=== PATIENT | male | born 1980 | race Asian ===

== ENCOUNTER 2018-01-26 12:52 | Emergency (ER) | payer OTHER ==
[~2018-01-26] VITALS: Ht 182.9 cm; Wt 90.7 kg
[~2018-01-26 12:52] MED LIST: ATIVAN1 M1 PO; ATIVAN1 MG PO; CEPHALEXIN500 M3 PO; FOLIC ACID1 M1 PO; INDOMETHACIN50 M1 PO; LORAZEPAM1 M1 PO; MAGNESIUM400 M1 PO; MILK THISTLE175 MG PO; MULTI-DAY VITA1 EACH PO; VITAMIN B COMP1 EACH PO; VITAMIN B-1100 MG PO; VITAMIN D-32000 UNI1 PO; ZINC50 M3 PO
--- NOTE | 2018-01-26 13:17 | ED PSYCHIATRIC COMPLAINT ---
History of Present Illness General Chief Complaint: General Adult Stated Complaint: ETOH DETOX Source: patient, old records Exam Limitations: no limitations Vital Signs & Intake/Output Vital Signs & Intake/Output Vital Signs Date Time Temp Pulse Resp B/P B/P Pulse O2 O2 Flow FiO2 Mean Ox Delivery Rate 01/26 1337 96.8 98 18 148/90 01/26 1337 96.8 98 18 148/90 97 Room Air Room Air 01/26 1258 96.8 100 18 96 Room Air Allergies Coded Allergies: Penicillins (HIVES 05/14/16) Reconcile Medications Cholecalciferol (Vitamin D3) (Vitamin D-3) (Unknown Strength) CAPSULE 1,000 MG PO DAILY SUPPLEMENT (Reported) Clonidine HCl 0.1 MG TABLET 1 TAB PO BID WITHDRAWAL Folic Acid 1 MG TABLET 1 MG PO DAILY SUPPLEMENT LORazepam (Ativan) 1 MG TAB 1 TAB PO TID PRN ALCOHOL WITHDRAWAL SYMPTOMS TEN...[id number] LORazepam (Ativan) 1 MG TAB 1 TAB PO BID PRN WITHDRAWAL Lorazepam 1 MG TABLET 1 MG PO DAILY ALCOHOL WITHDRAWAL Multivitamin (Multi-Day Vitamins) 1 EACH TABLET 1 TAB PO DAILY SUPPLEMENT ( Reported) Ondansetron (Zofran Odt) 4 MG TAB.RAPDIS 1 TAB SL TID PRN NAUSEA Thiamine HCl (Vitamin B-1) 100 MG TABLET 100 MG PO DAILY SUPPLEMENT Vitamin B Complex 1 EACH CAPSULE 1 CAP PO DAILY SUPPLEMENT (Reported) Triage Note: 37 Y/O MALE REQUESTING HELP WITH DETOX FROM ALCOHOL. STATES HIS LAST DRINK WAS LAST EVENING; STATES HE HAS BEEN DRINKING "QUITE A BIT DAILY". PT STATES HE WAS RECENTLY PRESCRIBED MEDS TO ASSIST WITH DETOX HOWEVER STATES HE STARTED DRINKING AFTER TAKING ONLY ONE DOSE. PT STATES HE HAS HAD A CHANGE OF HEART AND WOULD LIKE PRESCRIPTIONS FOR MEDS TO DETOX AT HOME. STATES HE HAS BEEN INPATIENT BEFORE AND FEELS HE CAN DO IT AT HOME THIS TIME, "I NEED TO BE IN A RELAXED ENVIRONMENT. I ALREADY REMOVED THE ALCOHOL FROM MY HOUSE AND MY WILL BE THERE". C/O TREMORS AND FEELING ANXIOUS AT THIS TIME. DENIES SI/HI Triage Nurses Notes Reviewed? yes Onset: Abrupt Duration: day(s): (1), constant Timing: recent history Severity: moderate Severity Numbers: 5 Associated Symptoms: denies HPI: 37-year-old male history of past alcohol abuse presents to ER requesting help going through detox. The patient was seen here 8 days ago for the same he states that because of withdrawal symptoms he started drinking again, his last drink was 2 days ago. He states he normally drinks 3 or 4 40 ounce beers daily. He denies any other drug use no SI. He denies any nausea or abdominal pain at this time he reports that his body however feels itchy" he denies chest pain shortness of breath. The patient states that he wants to attempt going through detox at home he does not want to be in the emergency room or in an inpatient setting. Old records state that the patient has a history of withdrawal seizures however he denies. He denies any other complaints at this time. (Antony Chirinos) Past History Travel History Traveled to [place] past 21 day No Medical History Any Pertinent Medical History? 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 No (Antony Chirinos) Review of Systems Review of Systems Constitutional: Reports: see HPI. Comments Review of systems: See HPI, All other systems negative. Constitutional, no chills no fever, HEENT: no sore throat no congestion Cardiovascular: No chest pain Skin: no rashes, no change in skin Respiratory: No dyspnea no cough GI: No nausea no vomiting : No dysuria Muscle skeletal: No joint pain, no back pain, no neck pain, Neurologic: , no headache Heme/endocrine: No bruising Immunology: No lymphadenopathy (Antony Chirinos) Physical Exam Physical Exam General Appearance: well developed/nourished, no apparent distress, alert, awake , comfortable Neurological/Psychiatric: no motor/sensory deficits, awake, alert Comments: Well-developed well-nourished patient in no apparent distress. HEENT: Atraumatic, extraocular motion intact Neck: Supple, FROM Back: FROM Cardiovascular: Regular rate and rhythms no murmur Respiratory: No respiratory distress. Patient speaking in full complete sentences. Breath sounds clear to auscultation bilaterally: NO W/R/R Extremities: full range of motion Neuro: awake, alert, and oriented to person, place and time. There were no obvious focal neurologic abnormalities. Skin: Warm & dry;No appreciable rash on exposed skin Psych: Mood affect normal, normal memory normal judgment. SAD PERSONS Done? patient not suicidal (Antony Chirinos) Progress Differential Diagnosis: drug intoxication, electrolyte abnormality Plan of Care: Patient denies SI or HI he was seen here 8 days ago for the same medically cleared after close observation with Ativan taper. He states that his is going to help him withdrawal at home he does not wish to be evaluated with blood work here in the ER he denies any other drug use. I discussed with him all his return precautions they feel comfortable with plan (Antony Chirinos) Departure Departure Time of Disposition: 1321 Disposition: HOME OR SELF CARE Condition: Stable Clinical Impression Primary Impression: Alcohol abuse Referrals: Patient Has No Primary Care Dr (PCP/Family) Additional Instructions: FOLLOW UP WITH DETOX FACILITIES LISTED. ATIVAN TAPER DIRECTED. DO NOT DRINK ALCOHOL AND TAKE THIS MEDICATION. CLONIDINE DIRECTED, ZOFRAN FOR NAUSEA. RETURN AT ANYTIME SOONER IF YOUR SYMPTOMS WORSEN DESPITE MEDICATION OR ANY OTHER CONCERNS Departure Forms: Customer Survey General Discharge Information Prescriptions: Current Visit Scripts Ondansetron (Zofran Odt) 1 TAB SL TID PRN NAUSEA #10 TAB LORazepam (Ativan) 1 TAB PO BID PRN WITHDRAWAL #10 TAB Clonidine HCl 1 TAB PO BID #9 TAB (Antony Chirinos) PA/CLIN NURSE SPEC Co-Sign Statement Statement: ED Attending supervision documentation- I saw and evaluated the patient. I have also reviewed all the pertinent lab results and diagnostic results. I agree with the findings and the plan of care as documented in the PA's/CLIN NURSE SPEC's documentation. x I have reviewed the ED Record and agree with the PA's/CLIN NURSE SPEC's documentation. [] Additions or exceptions (if any) to the PAs/CLIN NURSE SPEC's note and plan are summarized below: [] (Frank ELLINGTON,Jean-Claude)
[2018-01-26] MEDS ORDERED: CLONIDINE HCL0.1 MG PO (13:23)
[2018-01-26] MEDS ORDERED: ATIVAN1 M1 PO (13:23)
[2018-01-26] MEDS ORDERED: ZOFRAN ODT4 M1 SL (13:23)
[2018-01-26 13:37] VITALS: BP 148/90
== END 2018-01-26 13:39 ==
LOC: ERH 12:52
DX: F10.10 Alcohol abuse, uncomplicated (principal)
CPT/HCPCS: J3101

== ENCOUNTER 2018-02-11 18:41 | Emergency (ER) | payer OTHER ==
[~2018-02-11] VITALS: Ht 182.9 cm; Wt 95.3 kg
[~2018-02-11 18:41] MED LIST changes: +CLONIDINE HCL0.1 MG PO; +ZOFRAN ODT4 M1 SL
--- NOTE | 2018-02-11 19:30 | ED PSYCHIATRIC COMPLAINT ---
History of Present Illness General Chief Complaint: ETOH/Drug Related Complaint Stated Complaint: REQUESTING ETOH DETOX Source: patient, old records Exam Limitations: intoxication Vital Signs & Intake/Output Vital Signs & Intake/Output Vital Signs Date Time Temp Pulse Resp B/P B/P Pulse O2 O2 Flow FiO2 Mean Ox Delivery Rate 02/12 0511 98.4 73 18 119/73 02/12 0453 98.9 80 18 125/75 98 02/12 0128 97.4 78 18 109/60 02/12 0119 97.4 78 18 109/60 96 02/11 2150 97.6 101 16 137/66 95 Room Air 02/11 2149 97.6 101 16 137/66 02/11 1847 98.6 112 18 144/100 95 Room Air ED Intake and Output 02/12 0000 02/11 1200 Intake Total 200 Output Total Balance 200 Intake, Oral 200 Patient 210 lb Weight Weight Reported by Patient Measurement Method Allergies Coded Allergies: Penicillins (HIVES 05/14/16) amoxicillin (PROPHYLACTIC SHOCK PER PT 02/11/18) Reconcile Medications Chlordiazepoxide HCl 25 MG CAPSULE 0 PO SEE ADMIN CRITERIA PRN alcohol withdrawal 1-2 cap QID x 2D, 1-2 cap TID x 2D, 1-2 cap BID x 2D, 1-2 cap QD x2D Cholecalciferol (Vitamin D3) (Vitamin D-3) (Unknown Strength) CAPSULE 1,000 MG PO DAILY SUPPLEMENT (Reported) Clonidine HCl 0.1 MG TABLET 1 TAB PO BID WITHDRAWAL Clonidine HCl (Catapres) 0.1 MG TABLET 1 TAB PO DAILY htn Folic Acid 1 MG TABLET 1 MG PO DAILY SUPPLEMENT LORazepam (Ativan) 1 MG TAB 1 TAB PO TID PRN ALCOHOL WITHDRAWAL SYMPTOMS TEN...[id number] LORazepam (Ativan) 1 MG TAB 1 TAB PO BID PRN WITHDRAWAL Lorazepam 1 MG TABLET 1 MG PO DAILY ALCOHOL WITHDRAWAL Multivitamin (Multi-Day Vitamins) 1 EACH TABLET 1 TAB PO DAILY SUPPLEMENT ( Reported) Ondansetron (Zofran Odt) 4 MG TAB.RAPDIS 1 TAB SL TID PRN NAUSEA Thiamine HCl (Vitamin B-1) 100 MG TABLET 100 MG PO DAILY SUPPLEMENT Vitamin B Complex 1 EACH CAPSULE 1 CAP PO DAILY SUPPLEMENT (Reported) Triage Note: PT FROM HOME C/O ETOH DETOX. PT IS HIGHLY INTOXICATED IN TRIAGE, HICCUPING AND SLURRED SPEECH. PTS IN TRIAGE WITH DAUGHTER WHO IS AN . PT WAS RELEASED FROM [facility] TODAY TO F/U WITH DETOX TOMORROW. PT HAS DRANK ALL DAY TODAY LAST DRINK WAS 5 MINS PRIOR TO ARRIVAL PT STATES "JUST 5-6 BEERS" PTS STATES PT ALSO DRINKS TEQUILA, SMOKES CIGS, MARIJUANA. PTS STATES PT NEEDS HELP THIS HAS HAPPENED MULTIPLE TIMES BEFORE. PT IN TRIAGE DENIES -HI/-SI, BUT STATES PT STATES SOMETIMES WHEN HE DRINKS "IM GOING TO GO KILL A BUNCH OF PEOPLE THEN MYSELF". PTS IS [place] . PTS BP ELEVATED 144/100, HR 112. Triage Nurses Notes Reviewed? yes Onset: Just prior to arrival Duration: hour(s):, constant, continues in ED Timing: recent history Severity: moderate Associated Symptoms: anxiety, impaired concentration HPI: Patient presents requesting medications for alcohol detox. He reports shaking with alcohol abstinence and confusion. He denies fever chills nausea vomiting diarrhea abdominal pain chest pain shortness breath headache dysuria rash bleeding suicidal ideation homicidal ideation hallucination. Past History Travel History Traveled to [place] past 21 day No Medical History Any Pertinent Medical History? 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 No Review of Systems Review of Systems Constitutional: Reports: no symptoms. EENTM: Reports: no symptoms. Respiratory: Reports: no symptoms. Cardiovascular: Reports: no symptoms. GI: Reports: no symptoms. Genitourinary: Reports: no symptoms. Musculoskeletal: Reports: no symptoms. Skin: Reports: no symptoms. Neurological/Psychological: Reports: see HPI, anxiety, cognitive dysfunction, confusion. Hematologic/Endocrine: Reports: no symptoms. Immunologic/Allergic: Reports: no symptoms. All Other Systems: Reviewed and Negative Physical Exam Physical Exam General Appearance: well developed/nourished, alert, awake, anxious, comfortable Head: atraumatic, normal appearance Eyes: Bilateral: normal appearance, PERRL, EOMI. 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 patient not suicidal CAGE (2/more=possible [place] CAGE (2/more=possible [place] Response Value Cut Down? yes 1 Annoyed? yes 1 Guilty? 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 1 Total 4 Progress Differential Diagnosis: drug intoxication, drug overdose, drug withdrawal, electrolyte abnormality, hypoglycemia Plan of Care: Current Medications Sig/Angie Start time Last Medication Dose Stop Time Status Admin Clonidine 0.1 MG Q8 02/11 1930 UNVr 02/11 (Catapres) 1940 Gabapentin 300 MG Q8 02/11 1930 UNVr 02/11 (Neurontin) 1940 Folic Acid 1 MG DAILY 02/11 1925 UNVr 02/11 (Folic Acid) 1940 Multivitamins 1 TAB DAILY 02/11 1925 UNVr 02/11 (Theragran Vitamins) 1940 Thiamine HCl 100 MG DAILY 02/11 1925 UNVr 02/11 (Vitamin B1) 1940 Departure Departure Time of Disposition: 621 Disposition: HOME OR SELF CARE Condition: Stable Clinical Impression Primary Impression: Alcohol dependence with intoxication Secondary Impressions: Hypertension Referrals: Patient Has No Primary Care Dr (PCP/Family) Departure Forms: General Discharge Information Prescriptions: Current Visit Scripts Chlordiazepoxide HCl 0 PO SEE ADMIN CRITERIA PRN alcohol withdrawal #40 CAP 1-2 cap QID x 2D, 1-2 cap TID x 2D, 1-2 cap BID x 2D, 1-2 cap QD x2D Clonidine HCl (Catapres) 1 TAB PO DAILY #30 TAB Critical Care Note Critical Care Note Critical Care Time: 30-74 min (40)
[2018-02-12] MEDS ORDERED: CHLORDIAZEPOXID25 M3 PO (03:49)
[2018-02-12] MEDS ORDERED: CATAPRES0.1 M1 PO (03:51)
[2018-02-12 06:30] VITALS: BP 122/70
== END 2018-02-12 06:30 ==
LOC: ERH 18:41
DX: F10.229 Alcohol dependence with intoxication, unspecified (principal); I10 Essential (primary) hypertension; F17.210 Nicotine dependence, cigarettes, uncomplicated
CPT/HCPCS: J3490

== ENCOUNTER 2018-02-16 14:19 | Inpatient (IN) | payer OTHER ==
[~2018-02-16] VITALS: Ht 182.9 cm; Wt 95.3 kg
[~2018-02-16 14:19] MED LIST changes: +CATAPRES0.1 M1 PO; +CHLORDIAZEPOXID25 M3 PO
--- NOTE | 2018-02-16 14:41 | ED GENERAL ADULT ---
History of Present Illness General Chief Complaint: ETOH/Drug Related Complaint Stated Complaint: ETOH Source: patient, old records Exam Limitations: intoxication Vital Signs & Intake/Output Vital Signs & Intake/Output Vital Signs Date Time Temp Pulse Resp B/P B/P Pulse O2 O2 Flow FiO2 Mean Ox Delivery Rate 02/17 1734 98.1 78 18 179/80 02/17 1730 98.1 78 18 179/70 98 Room Air 02/17 1404 98.7 77 14 139/80 02/17 1404 98.7 77 14 139/60 99 Room Air 02/17 1222 99.2 96 21 146/76 02/17 1222 99.2 96 21 146/76 96 Room Air 02/17 0930 99.0 90 20 142/77 02/17 0930 99.0 90 20 142/77 97 Room Air 02/17 0737 99.2 95 20 154/80 02/17 0736 99.2 95 20 154/80 97 Room Air 02/17 0558 98.3 99 18 147/63 02/17 0521 98.3 99 18 147/63 97 Room Air 02/17 0333 99.0 86 18 143/84 97 Room Air 02/17 0315 99.0 86 18 143/84 02/17 0040 98.4 87 16 141/60 02/17 0040 98.4 87 16 141/66 97 Room Air 02/16 2237 97.8 112 20 157/82 02/16 2232 97.8 112 20 157/82 95 Room Air 02/16 1927 97.3 97 18 134/92 02/16 1927 97.3 97 20 134/92 96 Room Air 02/16 1757 98.3 92 20 128/86 02/16 1757 98.3 92 20 138/86 96 Room Air ED Intake and Output 02/17 0000 02/16 1200 Intake Total Output Total Balance Patient 210 lb Weight Weight Emiliana Lift Measurement Method Allergies Coded Allergies: Penicillins (HIVES 05/14/16) amoxicillin (PROPHYLACTIC SHOCK PER PT 02/11/18) Triage Note: PT BROUGHT IN BY [employer] FOR ETOH INTOXICATION AND SI STATEMENTS. PT REQUESTING DETOX FROM ETOH. PT HAS HX OF WITHDRAWL SEIZURES. PT STOOD UP AND FACE PLANTED ONTO RUG.NO LOC. PT WAS NOT WORKING AT THE TIME OF INCIDENT JUST VISITING. PT IS DENYING SI/HI AT THIS TIME Triage Nurses Notes Reviewed? yes HPI: Porfirio presents intoxicated. He was drinking and then showed up at work. Patient then fell face first into the floor. Patient told coworkers that he was having suicidal ideations but the patient now adamantly denies it. Patient has no current complaints however he is intoxicated. (Samira ELLINGTON,Severo Landon) Reconcile Medications Cholecalciferol (Vitamin D3) (Vitamin D-3) (Unknown Strength) CAPSULE 1,000 MG PO DAILY SUPPLEMENT (Reported) Clonidine HCl 0.1 MG TABLET 1 TAB PO BID WITHDRAWAL Folic Acid 1 MG TABLET 1 MG PO DAILY SUPPLEMENT Ondansetron (Zofran Odt) 4 MG TAB.RAPDIS 1 TAB SL TID PRN NAUSEA Thiamine HCl (Vitamin B-1) 100 MG TABLET 100 MG PO DAILY SUPPLEMENT Vitamin B Complex 1 EACH CAPSULE 1 CAP PO DAILY SUPPLEMENT (Reported) (Rakel ELLINGTON,Alejo Domínguez) Past History Travel History Traveled to [place] past 21 day No Medical History Any Pertinent Medical History? 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 No (Severo Hogan MD) Review of Systems Review of Systems Constitutional: Reports: no symptoms. EENTM: Reports: no symptoms. Respiratory: Reports: no symptoms. Cardiovascular: Reports: no symptoms. GI: Reports: no symptoms. Musculoskeletal: Reports: no symptoms. Neurological/Psychological: Reports: no symptoms. Immunologic/Allergic: Reports: no symptoms. (Severo Hogan MD) Physical Exam Physical Exam General Appearance: well developed/nourished, alert, awake, intoxicated Head: ABRASION TO RIGHT SIDEOF FACE Eyes: Bilateral: PERRL, EOMI, other (SLUGGISH). Ears, Nose, Throat: normal pharynx, normal ENT inspection Neck: normal inspection, supple, full range of motion Respiratory: normal breath sounds, chest non-tender, no respiratory distress, lungs clear Cardiovascular: regular rate/rhythm, normal peripheral pulses Gastrointestinal: normal bowel sounds, soft, non-tender, no organomegaly Back: normal inspection, normal range of motion Extremities: normal inspection, normal capillary refill, normal range of motion, no edema Neurologic/Psych: no motor/sensory deficits, awake, alert Core Measures ACS in differential dx? No CVA/TIA Diagnosis: No Sepsis Present: No Sepsis Focused Exam Completed? No (Samira ELLINGTON,Severo Landon) Progress Differential Diagnoses I considered the following diagnoses in my evaluation of the patient: [Alcohol intoxication, electrolyte abnormality] Plan of Care: Orders Procedure Date/time Status Heart Healthy Diet 02/18 B Active CBC WITHOUT DIFFERENTIAL 02/18 171 Active BASIC ELECTROLYTES PLUS BUN&CR 02/18 1712 Active Regular Diet 02/17 D Complete Pathway - chart 02/17 1709 Active Pathway - chart 02/17 1707 Active House Staff 02/17 1707 Active Patient Data 02/17 1707 Active Code Status 02/17 1707 Active Patient Data 02/17 1705 Active Misc Message 02/17 1542 Active ED Holding Orders 02/17 1542 Active Admit to inpatient 02/17 1542 Active Vital Signs 02/17 1542 Active Code Status 02/17 1542 Complete CASE MANAGEMENT CONSULT 02/17 0112 Active Pathway - chart 02/17 0111 Active VTE Mechanical Prophylaxis 02/17 UNK Active Vital Signs 02/17 UNK Active Intake & Output 02/17 UNK Active CIWA 02/17 UNK Active Current Medications Sig/Angie Start time Last Medication Dose Stop Time Status Admin Lorazepam 1.5 MG Q12H 02/19 0600 UNVr (Ativan) 02/19 1801 Enoxaparin Sodium 40 MG DAILY 02/18 0900 UNVr (Lovenox) Lorazepam 1.5 MG Q6 02/18 0600 UNVr (Ativan) 02/18 1801 Lorazepam 2 MG Q6 02/17 1800 UNVr (Ativan) 02/18 0001 Acetaminophen 650 MG Q6P PRN 02/17 171 UNVr (Tylenol) Lorazepam 1 MG Q1P PRN 02/17 1715 UNVr (Ativan) Cyanocobalamin/ 1 BAG DAILY 02/17 1709 UNVr Thiamine/Pyridoxine 02/19 165 (Vitamin in I.V.) Dextrose/Water 1,000 ML (D5W 1000) Folic Acid 1 MG DAILY 02/17 170 UNVr (Folic Acid) 02/19 09 Multivitamins 1 TAB DAILY 02/17 170 UNVr (Theragran Vitamins) Thiamine HCl 100 MG DAILY 02/17 170 UNVr (Vitamin B1) 02/19 0901 Diphenhydramine HCl 50 MG Q4 PRN 02/17 0330 AC 02/17 (Benadryl) 0315 Lorazepam 2 MG Q2P PRN 02/17 0115 AC 02/17 (Ativan) 0742 Lorazepam 1 MG Q2P PRN 02/17 0115 AC 02/17 (Ativan) 0520 Ondansetron HCl 4 MG Q4P PRN 02/17 011 AC 02/17 (Zofran) 0118 Initial ED EKG: none Hand-Off Endorsed To: Alejo Sawyer DO Endorsed Time: 1899 Pending: other (SOBRIETY) (Samira ELLINGTON,Severo Landon) Comments: 02/17/2018 7:55:07 AM patient 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 The patient still wishes to have detox but is currently contacting his to discuss this possibility with her. Patient's speech is clear and his gait is stable. He denies SI or HI. Given this I do not feel he needs an emergent crisis consultation a longer period (Rakel ELLINGTON,Alejo Domínguez) Departure Departure Disposition: STILL A PATIENT Condition: Stable Clinical Impression Primary Impression: Alcohol abuse with intoxication Referrals: Patient Has No Primary Care Dr (PCP/Family) Departure Forms: Customer Survey General Discharge Information (Samira ELLINGTON,Severo Landon) Departure Comments 02/16/18 7 PM The patient was signed out to me by Dr. Hogan. He is here for alcohol intoxication with alcohol level of greater than 300. He also had a mechanical fall. CT scan of the head was negative. He is for reevaluation when sober. The patient was signed out to Dr. Sanchez 11 PM (Alejo Sawyer DO) Departure Comments pt to be signed out to dr. santos, 02/17/18, 7am. (Laura ELLINGTON,Jerome Arnold) Admission Note Spoke With: Bhavesh Espinoza MD Documentation of Exam: Documentation of any treatments & extenuating circumstances including Concerns Regarding Discharge (functional status, medication knowledge or non-compliance, living conditions, etc.) that warrant an admission rather than observation: Continued alcohol consumption places the patient at high risk of pancreatitis, pancreatic failure, liver failure and cirrhosis. In order to avoid this the patient will need to cease drinking alcohol. Patient's alcohol use places pt at high risk of seizures and delirium tremens during cessation. Patient will be at high risk of withdrawal seizures and delirium tremens (both of which can be fatal) for up to 5 days after stopping alcohol. pt will require IV Ativan to prevent these complications. pt is therefore a very poor candidate for outpatient treatment given the above concerns and treatment needs. Pt will require a multiple day hospitalization. (Rakel ELLINGTON,Alejo Domínguez) Critical Care Note Critical Care Note Critical Care Time: non-applicable (Samira ELLINGTON,Severo Landon)
[2018-02-16 14:58] VITALS: BP 127/86
[2018-02-16 15:03] LABS: ABSOLUTE BASOPHIL COUNT 0 /CUMM (0.0-0.2); ABSOLUTE EOSINOPHIL COUNT 0.1 /CUMM (0.0-0.7); ABSOLUTE GRANULOCYTE CT 10.7 /CUMM (1.4-6.5); ABSOLUTE LYMPH COUNT 2.2 /CUMM (1.2-3.4); ABSOLUTE MONOCYTE COUNT 0.4 /CUMM (0.10-0.60); BASOPHIL % 0.3 % (0.0-2.0); EOSINOPHIL % 0.7 % (0-5); GRANULOCYTE % 79.3 % (42.2-75.2); HEMATOCRIT 42.5 % (42-52); MEAN CORPUSCULAR HGB 31.4 PG (27.0-31.0); MEAN CORPUSCULAR HGB CONC 34.9 G/DL (33.0-37.0); MEAN PLATELET VOLUME 6.8 FL (7.4-10.4); PLATELET COUNT 262 /CUMM (130-400); RBC DISTRIBUTION WIDTH 13.8 % (11.5-14.5); RED BLOOD CELL CT 4.72 /CUMM (4.70-6.10); WHITE BLOOD CELL COUNT 13.5 /CUMM (4.8-10.8)
[2018-02-16 17:57] VITALS: BP 128/86
--- NOTE | 2018-02-16 18:50 | CT SCAN REPORT ---
EXAMINATION: CT HEAD WITHOUT CONTRAST CT CERVICAL SPINE WITHOUT CONTRAST CLINICAL INFORMATION: Head strike. EtOH. COMPARISON: None. TECHNIQUE: Imaging was performed from the skull base to vertex without intravenous administration of contrast. In addition, helical noncontrast CT imaging was acquired through the cervical spine and source images were reviewed along with axial reconstructions and sagittal and coronal MPRs. DLP: 1050.6 mGy-cm FINDINGS: HEAD: No intracranial mass, hemorrhage, or midline shift is visualized. The ventricles and sulci are age-appropriate. No extra-axial collections are identified. The paranasal sinuses and mastoid air cells are well aerated. CERVICAL SPINE: There is no evidence of acute cervical spine fracture. Vertebral bodies remain normal in height. Cervical vertebrae have normal alignment. There is multilevel degenerative spondylosis of the cervical spine with disc height narrowing and endplate spurs and facet joint arthrosis. There is disc height narrowing with prominent posterior spurs at C3-C4. Posterior spurs encroach into the neural foramina bilaterally, greater on the left than the right. There is mild disc height narrowing with anterior endplate spurs at C5-C6 through the upper thoracic spine. No pre- or paravertebral soft tissue abnormality is identified. Limited assessment of the lung apices is unremarkable. IMPRESSION: 1. No acute intracranial pathology. 2. No CT evidence of acute cervical spine fracture or traumatic subluxation
[2018-02-16 19:27] VITALS: BP 134/92
[2018-02-16 22:37] VITALS: BP 157/82
[2018-02-17] VITALS (9 sets, daily range): BP systolic 110–179; BP diastolic 60–84
--- NOTE | 2018-02-17 17:14 | History & Physical ---
Elva ELLINGTON,[facility] 02/17/18 1713: General Information and HPI MD Statement: I have seen and personally examined TINA JADE and documented this H&P. The patient is a 38 year old M who presented with a patient stated chief complaint of [Alcohol Detox]. Source of Information: patient Exam Limitations: no limitations History of Present Illness: Mr. Jade is 38 year-old gentleman with past medical history of alcohol abuse and alcohol withdrawal seizures was brought in by his coworker for alcohol detox. According to the patient, he has been drinking since the age of 14. He was last admitted to [facility] in 2016 for alcohol detox and has been sober since then. He started drinking again 2 weeks ago because of stress at home and has been binge drinking with at least 30 beers/hard liquor a day. Last drink was sometime around yesterday morning. He went to work after drinking, had a fall there and was brought in by his process for further evaluation. He denies losing consciousness or seizure-like activity. Also has a history of alcohol withdrawal seizures, last seizure episode was in 2015 and has had multiple episodes prior to that. He also reports ?? being admitted to the ICU for Ativan drip and being intubated in the past. Currently feels very shaky, nauseous and anxious. Denies any headaches, suicidal or homicidal ideations. Allergies/Medications Allergies: Coded Allergies: Penicillins (HIVES 05/14/16) amoxicillin (PROPHYLACTIC SHOCK PER PT 02/11/18) Home Med list Cholecalciferol (Vitamin D3) (Vitamin D-3) (Unknown Strength) CAPSULE 1,000 MG PO DAILY SUPPLEMENT (Reported) Clonidine HCl 0.1 MG TABLET 1 TAB PO BID WITHDRAWAL Folic Acid 1 MG TABLET 1 MG PO DAILY SUPPLEMENT Ondansetron (Zofran Odt) 4 MG TAB.RAPDIS 1 TAB SL TID PRN NAUSEA Thiamine HCl (Vitamin B-1) 100 MG TABLET 100 MG PO DAILY SUPPLEMENT Vitamin B Complex 1 EACH CAPSULE 1 CAP PO DAILY SUPPLEMENT (Reported) Past History Travel History Traveled to [place] past 21 day No Medical History Neurological: NONE EENT: NONE Cardiovascular: NONE Respiratory: NONE Gastrointestinal: NONE Hepatic: NONE Renal: NONE Musculoskeletal: NONE Psychiatric: ETOH WITHDRAWL SEIZURES Endocrine: NONE Blood Disorders: NONE Cancer(s): NONE STUDIO ASSOCIATE/Reproductive: NONE History of MRSA: No History of VRE: No History of CDIFF: No Surgical History Surgical History: non-contributory Past Family/Social History Family History Relations & Conditions if any Relation not specified for: FH: alcoholism Psychosocial History Who Do You Live With? spouse Services at Home: None Smoking Status: Never Smoked ETOH Use: alcoholic Illicit Drug Use: denies illicit drug use Functional Ability ADLs Independent: dressing, eating, toileting, bathing. Ambulation: independent IADLs Independent: shopping, housework, finances, food prep, telephone, transportation , medication admin. Review of Systems Review of Systems Constitutional: Reports: no symptoms. EENTM: Reports: no symptoms. Cardiovascular: Reports: no symptoms. Respiratory: Reports: no symptoms. GI: Reports: nausea. Genitourinary: Reports: no symptoms. Musculoskeletal: Reports: no symptoms. Skin: Reports: no symptoms. Neurological/Psychological: Reports: tremors. Hematologic/Endocrine: Reports: no symptoms. Immunologic/Allergic: Reports: no symptoms. All Other Systems: Reviewed and Negative Exam & Diagnostic Data Last 24 Hrs of Vital Signs/I&O Vital Signs Date Time Temp Pulse Resp B/P B/P Pulse O2 O2 Flow FiO2 Mean Ox Delivery Rate 02/17 1734 98.1 78 18 179/80 02/17 1730 98.1 78 18 179/70 98 Room Air 02/17 1404 98.7 77 14 139/80 02/17 1404 98.7 77 14 139/60 99 Room Air 02/17 1222 99.2 96 21 146/76 02/17 1222 99.2 96 21 146/76 96 Room Air 02/17 0930 99.0 90 20 142/77 02/17 0930 99.0 90 20 142/77 97 Room Air 02/17 0737 99.2 95 20 154/80 02/17 0736 99.2 95 20 154/80 97 Room Air 02/17 0558 98.3 99 18 147/63 02/17 0521 98.3 99 18 147/63 97 Room Air 02/17 0333 99.0 86 18 143/84 97 Room Air 02/17 0315 99.0 86 18 143/84 02/17 0040 98.4 87 16 141/60 02/17 0040 98.4 87 16 141/66 97 Room Air 02/16 2237 97.8 112 20 157/82 06/18 2232 97.8 112 20 157/82 95 Room Air 02/16 1927 97.3 97 18 134/92 02/16 1927 97.3 97 20 134/92 96 Room Air Physical Exam General Appearance Alert, Oriented X3, Cooperative, No Acute Distress Skin No Rashes, No Breakdown HEENT PERRLA, EOMI, Mucous Membr. moist/pink Cardiovascular Regular Rate, Normal S1, Normal S2, No Murmurs Lungs Clear to Auscultation, Normal Air Movement Abdomen Normal Bowel Sounds, Soft, No Tenderness Extremities No Clubbing, No Cyanosis, No Edema Diagnostic Data Other Results CT CERV SPINE WO IV CONTRAST; CT HEAD WO IV CONTRAST FINDINGS: HEAD: No intracranial mass, hemorrhage, or midline shift is visualized. The ventricles and sulci are age-appropriate. No extra-axial collections are identified. The paranasal sinuses and mastoid air cells are well aerated. CERVICAL SPINE: There is no evidence of acute cervical spine fracture. Vertebral bodies remain normal in height. Cervical vertebrae have normal alignment. There is multilevel degenerative spondylosis of the cervical spine with disc height narrowing and endplate spurs and facet joint arthrosis. There is disc height narrowing with prominent posterior spurs at C3-C4. Posterior spurs encroach into the neural foramina bilaterally, greater on the left than the right. There is mild disc height narrowing with anterior endplate spurs at C5-C6 through the upper thoracic spine. No pre- or paravertebral soft tissue abnormality is identified. Limited assessment of the lung apices is unremarkable. IMPRESSION: 1. No acute intracranial pathology. 2. No CT evidence of acute cervical spine fracture or traumatic subluxation Assessment/Plan Assessment: Mr. Jade is 38 year-old gentleman with past medical history of alcohol abuse and alcohol withdrawal seizures was brought in by his coworker for alcohol detox. Problem List; 1. Alcohol withdrawal 2. Fall 3. Leukocytosis - unclear etiology 3. Mild transaminitis - likely secondary to alcohol abuse - We will admit to general medicine floor - Start on scheduled Ativan 2 g every 6 - IV Ativan per [facility] protocol - Continue multivitamin, folate and thiamine - Repeats CBC and BEP in a.m. - Social Work Consult in am DVT prophylaxis; Alps and subcutaneous Lovenox Patient is full code As Ranked By This Provider Problem List: 1. ALCOHOL WITHDRAWAL Core Measures/Misc (05/18) Acute Coronary Syndrome ACS Diagnosis: No Congestive Heart Failure Congestive Heart Failure Diagnosis No Cerebrovascular Accident CVA/TIA Diagnosis: No VTE (View Protocol) VTE Risk Factors Immobility No Mechanical VTE Prophylaxis d/t N/A MechProphylax Ordered No VTE Pharm Prophylaxis d/t NA PharmProphylax ordered Sepsis (View protocol) Sepsis Present: No If YES complete Sepsis Event Note If YES complete Sepsis Event Note Bhavesh Espinoza MD 02/17/181936: Core Measures/Misc (05/18) Sepsis (View protocol) If YES complete Sepsis Event Note If YES complete Sepsis Event Note Attending MD Review Statement Attending Statement Attending MD Statement: examined this patient, discuss w/resident/PA/TEACHER EDUCATION INSTRUCTOR, agreed w/resident/PA/TEACHER EDUCATION INSTRUCTOR, reviewed EMR data (avail) Attending Assessment/Plan: 38M PMH EtOH abuse with history of withdrawal seizure presents for alcohol detox. Initially agitated and tachycardic in ED with CIWA score of 19, requiring total 4mg Ativan and 25mg Phenergen, improved but high risk for DTs and seizure. Will admit to general medicine, start Librium 50mg q6h with taper, Ativan PRN CIWA, monitor electrolytes, continue home medications, DVT PPx Puneet ELLINGTON,Efrain 02/17/182027: Core Measures/Misc (05/18) Sepsis (View protocol) If YES complete Sepsis Event Note If YES complete Sepsis Event Note Resident Review Statement Resident Statement: examined this patient, discussed with seo intern, agreed with seo intern Other Findings: This is a 38-year-old male past medical history significant for alcohol abuse, who comes in for chief complaint of requesting alcohol withdrawal. Patient has had multiple alcohol associated hospitalizations. Last admission in [facility] in 2016. Patient states that since then he has been largely sober without any admissions. However in the last 2 weeks he has had family stressors including disagreements with his spouse and started drinking again. He states he has about 30 drinks a day, a mix between hard liquor and beer. He cannot remember his last drink but knows that he was at some point yesterday. She has had "at least half a dozen" withdrawal seizures, the last one in 2016. He states he has been to the ICU and intubated for alcohol withdrawal but I'm not sure about the veracity of these statements as he was not able to provide any further details. He couldn't reverse hospital or what year this occurred. He was brought in by his manager cath lab as he showed up intoxicated to work and fell face first on the floor. Patient denied any smoking or drug use however his U tox is positive for benzodiazepine. On CT PEG DRIVER he has prescription for 40 tablets of Librium prescribed in 02/12/2018. Prior to that he has to prescription for Ativan 1 on January 18 and January 26. All the medications are prescribed by emergency department physicians. Note that one of the patient's coworkers stated that he might have made suicidal statement. However to both the ED physicians and to myself patient became acutely denies such thoughts. He states he does not remember making any such statement. Vitals: 99.2, 77-112, 14-20, 157/82, 93% on room air. CBC: White count 13.5. AST 96, ALT 78, negative lipase, negative alkaline phosphatase. U tox positive for benzos and a serum alcohol level of 285. Assessment: This is a 28-year-old male past medical history significant for alcohol abuse who presented with chief complaint of alcohol withdrawal. Max ciwa in ED was 19. Admit to general medicine floor for further workup and monitoring. 1. Alcohol withdrawal: * CIWA protocol * Scheduled Ativan 2mg every 6hrs * Folate * Multivite * Thiamine * Social work * Psych consult
[2018-02-18 02:00] VITALS: BP 110/66
[2018-02-18 06:00] VITALS: BP 114/68
[2018-02-18 06:20] VITALS: BP 114/68
--- NOTE | 2018-02-18 07:12 | PN- Housestaff ---
Subjective Follow-up For: 1. Alcohol withdrawal 2. Fall 3. Leukocytosis - unclear etiology 3. Mild transaminitis - likely secondary to alcohol abuse Subjective: Patient states he feels better, and he wants to go home today even if he has to sign of AMS. Review of Systems Constitutional: Reports: no symptoms. EENTM: Reports: no symptoms. Cardiovascular: Reports: no symptoms. Respiratory: Reports: no symptoms. Gastrointestinal: Reports: no symptoms. Genitourinary: Reports: no symptoms. Musculoskeletal: Reports: no symptoms. Skin: Reports: no symptoms. Neurological/Psychological: Reports: no symptoms. Hematologic/Endocrine: Reports: no symptoms. Immunologic/Allergic: Reports: no symptoms. Objective Last 24 Hrs of Vital Signs/I&O Vital Signs Date Time Temp Pulse Resp B/P B/P Pulse O2 O2 Flow FiO2 Mean Ox Delivery Rate 02/18 0620 98.4 59 18 114/68 97 Room Air 02/18 0600 98.4 59 18 114/68 02/18 0200 98.0 60 18 110/66 02/17 2203 97.8 73 18 110/62 96 Room Air 02/17 1843 97.9 78 18 132/68 98 Room Air 02/17 1734 98.1 78 18 179/80 02/17 1730 98.1 78 18 179/70 98 Room Air Intake & Output 02/18 1600 02/18 0800 02/18 0000 Intake Total 490 600 Output Total Balance 490 600 Intake, IV 250 Intake, Oral 240 600 Patient 210 lb Weight Physical Exam General Appearance: Alert, Oriented X3, Cooperative, No Acute Distress Skin: No Rashes, No Breakdown Cardiovascular: Regular Rate, Normal S1, Normal S2 Lungs: Clear to Auscultation, Normal Air Movement Abdomen: Normal Bowel Sounds, Soft, No Tenderness Extremities: No Clubbing, No Cyanosis, No Edema Current Medications: Current Medications Sig/Angie Start time Last Medication Dose Route Stop Time Status Admin Acetaminophen 0 .STK-MED ONE 02/17 1738 DC PO Acetaminophen 650 MG Q6P PRN 02/17 1715 DCD 02/17 PO 1755 Cyanocobalamin/ 1 BAG DAILY 02/17 1709 CAN Thiamine/Pyridoxine IV 02/19 1659 Dextrose/Water 1,000 ML Diphenhydramine HCl 50 MG .STK-MED ONE 02/17 2359 DC PO 02/18 0000 Diphenhydramine HCl 50 MG .STK-MED ONE 02/17 2002 DC PO 02/17 2003 Diphenhydramine HCl 50 MG Q4 PRN 02/17 0330 DCD 02/18 PO 0000 Enoxaparin Sodium 40 MG DAILY 02/18 0900 DCD 02/18 SC 0906 Folic Acid 0 .STK-MED ONE 02/17 1852 DC PO Folic Acid 1 MG DAILY 02/17 1708 DCD 02/18 PO 02/19 0901 0906 Lorazepam 1.5 MG Q12H 02/19 0600 DCD PO 02/19 1801 Lorazepam 1.5 MG Q6 02/18 0600 DCD 02/18 PO 02/18 1801 0533 Lorazepam 0 Q1P PRN 02/17 2115 DCD IV Lorazepam 2 MG Q6 02/17 1800 DC 02/17 PO 02/18 0001 2356 Lorazepam 0 .STK-MED ONE 02/17 1738 DC PO Lorazepam 1 MG Q1P PRN 02/17 1715 DC IV Lorazepam 2 MG Q2P PRN 02/17 0115 DC 02/17 PO 0742 Lorazepam 1 MG Q2P PRN 02/17 0115 DC 02/17 PO 1957 Multivitamins 0 .STK-MED ONE 02/17 1851 DC PO Multivitamins 1 TAB DAILY 02/17 1708 DCD 02/18 PO 0906 Ondansetron HCl 0 .STK-MED ONE 02/17 1738 DC PO Ondansetron HCl 4 MG Q4P PRN 02/17 0115 DCD 02/17 PO 1755 Thiamine HCl 500 MG TID 02/17 2100 DCD 02/17 Sodium Chloride 250 ML IV 02/20 1501 2356 Thiamine HCl 0 .STK-MED ONE 02/17 1851 DC PO Thiamine HCl 100 MG DAILY 02/17 1708 DC 02/17 PO 02/19 0901 1903 Assessment/Plan Assessment: Mr. Jade is 38 year-old gentleman with past medical history of alcohol abuse and alcohol withdrawal seizures was brought in by his coworker for alcohol detox. Problem List; 1. Alcohol withdrawal 2. Fall 3. Leukocytosis - unclear etiology 3. Mild transaminitis - likely secondary to alcohol abuse - Scheduled Ativan decreased from 2 g every 6 to 1.5 mg every 6 hours. Highest fever for the past 24 hours was 12 and overnight ranged between 0-5. - IV Ativan per [facility] protocol - Continue multivitamin, folate and thiamine - Patient did not want to stay in the hospital, stated he feels stable to be discharged, has Ativan available at home and if needed for withdrawal he can use them. He decided to sign out AMA. Patient explained about all the risks of leaving AMA including what was seizures and . DVT prophylaxis; Alps and subcutaneous Lovenox Patient is full code Problem List: 1. Alcohol withdrawal 2. Transaminitis Pain Ratin Pain Location: None Pain Goal: Remain pain free Pain Plan: Pain pathway Tomorrow's Labs & Rationales: None
--- NOTE | 2018-02-18 09:19 | Patient Discharge Instructions ---
Discharge Instructions General Discharge Information Special Instructions: 1. Please monitor for seizures or alcohol withdrawl. 2. Please return if your health deteriorates in anyway 3. If you have thoughts of self harm or harming others kindly return or call 911 4. Please follow up with your PCP in one week Diet Continue normal diet: Yes Activity Full Activity/No Limits: Yes Acute Coronary Syndrome Inclusion Criteria At DC or during hospital stay patient has or had the following: ACS DIAGNOSIS No Discharge Core Measures Meds if any: Prescribed or Continued at Discharge Meds if any: NOT Prescribed or Continued at Discharge Congestive Heart Failure Inclusion Criteria At DC or during hospital stay patient has or had the following: CHF DIAGNOSIS No Discharge Core Measures Meds if any: Prescribed or Continued at Discharge Meds if any: NOT Prescribed or Continued at Discharge Cerebrovascular accident Inclusion Criteria At DC or during hospital stay patient has or had the following: CVA/TIA Diagnosis No Discharge Core Measures Meds if any: Prescribed or Continued at Discharge Meds if any: NOT Prescribed or Continued at Discharge Venous thromboembolism Inclusion Criteria VTE Diagnosis No VTE Type NONE VTE Confirmed by (Test) NONE Discharge Core Measures - Per Current guidelines, there needs to be overlap - treatment for the first 5 days of Warfarin therapy. - If discharged on Warfarin prior to 5 days of - overlap therapy, the patient will need to be - assessed for post discharge needs including - *Post discharge parental anticoagulation - *Warfarin and/or parental anticoagulation education - *Follow up date to check INR post discharge At least 5 days overlap therapy as Inpatient No Meds if any: Prescribed or Continued at Discharge Note: Overlap Therapy is Warfarin and Anticoagulant Meds if any: NOT Prescribed or Continued at Discharge
--- NOTE | 2018-02-18 11:01 | PN- Att Addend ---
Attending Addendum Attending Brief Note Patient seen and examined, says that he's feeling 100% better. Patient is admitted with acute alcohol intoxication. Patient denies any suicidal or homicidal ideation. Vital signs are stable. CIWA scores maximum was 12. Patient currently on scheduled Ativan. Patient wants to go home. Extreme to the patient that he's currently on scheduled Ativan which has to be tapered down over the next few days. Explained to him that stopping Ativan abruptly would seizure. If patient is not an appropriate dose of Ativan and alcohol withdrawal can also lead to seizure. He has a history of alcohol withdrawal seizures in the past. Patient to stay. He understands the risks of leaving AGAINST MEDICAL ADVICE including seizure, aspiration, fall, sepsis, pneumonia, that. He still wants to go home because "he's feeling fine". Patient does not want to wait at all and wants to leave. He will sign AGAINST MEDICAL ADVICE form and he will leave.
--- NOTE | 2018-02-18 15:52 | Discharge Summary ---
Visit Information Visit Dates Admission Date: 02/17/18 Discharge Date: 02/18/18 Hospital Course Course Attending Physician: Liza Ac MD Primary Care Physician: Patient Has No Primary Care Dr Hospital Course: Mr. Jade is 38 year-old gentleman with past medical history of alcohol abuse and alcohol withdrawal seizures was brought in by his coworker for alcohol detox. Patient was admitted to the [facility] floor for the managment of following issues; 1. Alcohol withdrawal 2. Fall 3. Leukocytosis - unclear etiology 3. Mild transaminitis - likely secondary to alcohol abuse Atient was started on Scheduled Ativan and IV Ativan per CIWA protocol. Also started on multivitamin, folate and thiamine. Patient did not want to stay in the hospital, stated he felt stable to be discharged, has Ativan available at home and if needed for withdrawal he can use them. He decided to sign out AMA on Day 2 of admission before completing his Ativan taper. Patient was explained about all the risks of leaving AMA including withdrawl seizures and . Head and Neck CT were also obtained at the time of admission because of the fall which were negative for any acute intracranial pathologies. Allergies: Coded Allergies: Penicillins (HIVES 05/14/16) amoxicillin (PROPHYLACTIC SHOCK PER PT 02/11/18) Significant Procedures: CT CERV SPINE WO IV CONTRAST; CT HEAD WO IV CONTRAST FINDINGS: HEAD: No intracranial mass, hemorrhage, or midline shift is visualized. The ventricles and sulci are age-appropriate. No extra-axial collections are identified. The paranasal sinuses and mastoid air cells are well aerated. CERVICAL SPINE: There is no evidence of acute cervical spine fracture. Vertebral bodies remain normal in height. Cervical vertebrae have normal alignment. There is multilevel degenerative spondylosis of the cervical spine with disc height narrowing and endplate spurs and facet joint arthrosis. There is disc height narrowing with prominent posterior spurs at C3-C4. Posterior spurs encroach into the neural foramina bilaterally, greater on the left than the right. There is mild disc height narrowing with anterior endplate spurs at C5-C6 through the upper thoracic spine. No pre- or paravertebral soft tissue abnormality is identified. Limited assessment of the lung apices is unremarkable. IMPRESSION: 1. No acute intracranial pathology. 2. No CT evidence of acute cervical spine fracture or traumatic subluxation Disposition Summary Disposition Principal Diagnosis: Alcohol Withdrawl Additional Diagnosis: Fall Transaminitis Leukocytosis Discharge Disposition: left against medical adv Discharge Instructions General Discharge Information Code Status: Full Code Patient's Diet: Regular Patient's Activity: As tolerated Follow-Up Instructions/Appts: 1. Please monitor for seizures or alcohol withdrawl. 2. Please return if your health deteriorates in anyway 3. If you have thoughts of self harm or harming others kindly return or call 911 4. Please follow up with your PCP in one week Medications at Discharge Discharge Medications: Continue taking these medications: Cholecalciferol (Vitamin D3) (Vitamin D-3) (Unknown Strength) CAPSULE 1,000 Milligram ORAL DAILY Comments: Last Taken:not taken in hospital Time: Vitamin B Complex (Vitamin B Complex) 1 EACH CAPSULE 1 Capsule ORAL DAILY Comments: DID NOT RECIEVE IN HOSPITAL Folic Acid (Folic Acid) 1 MG TABLET 1 Milligram ORAL DAILY Qty = 30 Comments: Last Taken:02/18/18 Time: 9AM Thiamine HCl (Vitamin B-1) 100 MG TABLET 100 Milligram ORAL DAILY Qty = 30 Comments: Last Taken: 02/17/18 Time: 11PM Ondansetron (Zofran Odt) 4 MG TAB.RAPDIS 1 Tablet SUBLINGUAL THREE TIMES DAILY as needed for NAUSEA Qty = 10 Comments: Last Taken: 02/17/18 Time: 6PM Clonidine HCl (Clonidine HCl) 0.1 MG TABLET 1 Tablet ORAL TWICE DAILY Qty = 9 Comments: NOT GIVEN IN HOSPITAL Copies To: Elva ELLINGTON,Marisela
[2018-02-20] MEDS ORDERED: ZOFRAN ODT4 M1 SL (07:52)
[2018-02-20] MEDS ORDERED: CHLORDIAZEPOXID25 M3 PO (07:52)
== END 2018-02-18 09:42 | disposition left against medical advice (07) | DRG 770 ==
LOC: ERH 14:19 → ERHI 02-17 15:42 → ENRESERV 02-17 17:34 → ENTRNSPT 02-17 19:04 → EDTRNSPTSTS 02-17 19:11 → EDTRNSPT 02-17 19:11 → 2NA 02-17 19:18 → CMPTRNSPT 02-17 19:23 → 2NA 02-18 07:13
PROVIDERS: Physician Assistant
DX: F10.229 Alcohol dependence with intoxication, unspecified (principal); Y90.8 Blood alcohol level of 240 mg/100 ml or more; R74.0 Nonspecific elevation of levels of transaminase and lactic acid dehydrogenase [LDH]; Z88.1 Allergy status to other antibiotic agents; Z88.0 Allergy status to penicillin; W18.30XA Fall on same level, unspecified, initial encounter; Y92.89 Other specified places as the place of occurrence of the external cause; Y99.0 Civilian activity done for income or pay; D72.829 Elevated white blood cell count, unspecified; R00.0 Tachycardia, unspecified
CPT/HCPCS: 2NASP; 80307; 82436; G0480; J1650; J2405; J3101; J3490; J7040